=== PATIENT | male | born 1965 | race Caucasian/White ===

== ENCOUNTER → 2025-08-11 12:57 | Outpatient (REF) | payer OTHER, SELFPAY | LOC: RAD 12:57 | PROVIDERS: ATTENDING PHYSICIAN Internal Medicine Cardiovascular Disease; FAMILY PHYSICIAN Family Medicine | DX: E78.2 Mixed hyperlipidemia (principal) | CPT/HCPCS: 75571 ==

== ENCOUNTER → 2025-08-27 06:47 | Outpatient (REF) | payer OTHER, SELFPAY | LOC: HWRCS 06:47 | PROVIDERS: ATTENDING PHYSICIAN Internal Medicine Cardiovascular Disease; FAMILY PHYSICIAN Family Medicine | DX: E78.2 Mixed hyperlipidemia (principal); R06.09 Other forms of dyspnea | CPT/HCPCS: 93306 ==